=== PATIENT | male | born 1985 | race Hispanic/Latino ===

== ENCOUNTER 2021-03-13 15:14 | Inpatient (IN) | payer BC ==
[~2021-03-13 15:14] MED LIST: Magnevist 469MG/ML 20 ML VIAL ONE
[2021-03-13 16:03] LABS: #Basophils 0.1 thou/uL (0.0-0.2); #Eosinphils 0.1 thou/uL (0.0-0.7); #Lymphocytes 1.2 thou/uL (1.20-3.40); #Monocytes 0.4 thou/uL (0.11-0.59); #Neutrophils 3.6 thou/uL (1.40-6.50); %Basophils 1.3 % (0.0-1.0); %Lymphocytes 22.1 % (21.0-51.0); %Monocytes 6.9 % (0.0-10.0); %Neutrophils 68.8 % (42.0-75.0); Mean Corpuscular HGB CONC 36.3 g/dL (32.0-36.0); Mean Corpuscular Hemoglobin 33.3 pg (27.0-31.0); Mean Corpuscular Volume 91.9 fL (78.0-98.0); Mean Platelet Volume 7.9 fL (7.4-10.4); Platelet Count 235 thou/uL (130-400); RBC Distribution Width 12.2 % (11.5-14.5); White Blood Cell (WBC) Count 5.2 thou/uL (4.8-10.8)
[2021-03-13 16:19] LABS: ALT (SGPT) 40 U/L (8-55); AST (SGOT) 17 U/L (5-34); Albumin 4.1 g/dL (3.5-5.0); Alkaline Phosphatase 96 U/L (40-110); Anion Gap 16 mmol/L (10-20); BUN (Urea Nitrogen) 12 mg/dL (8.9-20.6); Bilirubin, Total 0.6 mg/dL (0.2-1.2); Calc. Creatinine Clearance 0 mL/min (70-130); Calcium 9.2 mg/dL (7.8-10.44); Carbon Dioxide 23 mmol/L (22-29); Chloride 98 mmol/L (98-107); Globulin 2.8 g/dL (2.4-3.5); Potassium 3.7 mmol/L (3.5-5.1); Protein, Total 6.9 g/dL (6.0-8.3); Sodium 133 mmol/L (136-145)
[2021-03-13 16:21] LABS: Troponin I 0.017 ng/mL (< 0.028)
[2021-03-13 16:22] LABS: Glucose 676 mg/dL (70-105)
[2021-03-13] MEDS ORDERED: niCARdipine 20MG In NaCl 20 MG/200 ML BAG ONE (19:38)
[2021-03-13 20:15] LABS: INR-International Normal Ratio 1.1; Prothrombin Time 14.3 sec (12.0-14.7)
[2021-03-13 20:16] LABS: PTT 25.8 sec (22.9-36.1)
[2021-03-13] MEDS ORDERED: Labetalol HCl 100 MG/20 ML VIAL ONE (21:02)
[2021-03-13] MEDS ORDERED: Dextrose 5% in Water 1,000 ML IV PRN (21:52)
[2021-03-13] MEDS ORDERED: HumaLOG 300 UNITS/3 ML VIAL SC PRN (21:52)
[2021-03-13] MEDS ORDERED: Dextrose 50% Abboject 50 ML SYRINGE SLOW IVP PRN (21:52)
[2021-03-13] MEDS ORDERED: Acetaminophen 650 MG Suppository PR PRN (22:00)
[2021-03-13] MEDS ORDERED: Acetaminophen 325 MG TAB PO PRN (22:00)
[2021-03-13] MEDS ORDERED: Ondansetron ODT 4 MG TAB PO PRN (22:00)
[2021-03-14 00:05] VITALS: BMI 36.3
[2021-03-14] MEDS: HYDROcodone/Acetaminophen 5/325 mg Tablet PO PRN ×4 (00:25→20:42)
[2021-03-14] MEDS: niCARdipine 50 MG in Sodium Chloride 0.9% 250 ML 230 ML IV SCH ×3 (00:35→19:34)
[2021-03-14 03:43] LABS: #Lymphocytes 1.5 thou/uL (1.20-3.40); #Monocytes 0.5 thou/uL (0.11-0.59); #Neutrophils 7.3 thou/uL (1.40-6.50); %Eosinophils 0.4 % (0.0-10.0); %Lymphocytes 16.3 % (21.0-51.0); %Neutrophils 78.2 % (42.0-75.0); Hemoglobin 15.7 g/dL (14.0-18.0); Mean Corpuscular HGB CONC 34.7 g/dL (32.0-36.0); Mean Corpuscular Hemoglobin 31.5 pg (27.0-31.0); Mean Corpuscular Volume 90.9 fL (78.0-98.0); Mean Platelet Volume 7.5 fL (7.4-10.4); Platelet Count 266 thou/uL (130-400); RBC Distribution Width 12.3 % (11.5-14.5); Red Blood Cell (RBC) Count 4.98 mill/uL (4.70-6.10); White Blood Cell (WBC) Count 9.3 thou/uL (4.8-10.8)
[2021-03-14 03:47] LABS: Hemoglobin A1c 12.8 % (4.0-6.0)
[2021-03-14 03:57] LABS: Anion Gap 14 mmol/L (10-20); BUN (Urea Nitrogen) 10 mg/dL (8.9-20.6); Calc. Creatinine Clearance 143 mL/min (70-130); Calcium 9.1 mg/dL (7.8-10.44); Carbon Dioxide 22 mmol/L (22-29); Chloride 101 mmol/L (98-107); Glucose 319 mg/dL (70-105); Potassium 3.4 mmol/L (3.5-5.1); Sodium 134 mmol/L (136-145)
[2021-03-14] MEDS ORDERED: HumaLOG 300 UNITS/3 ML VIAL SC PRN (11:45)
[2021-03-14] MEDS ORDERED: Milk Of Magnesia 30 ML UDCUP PO PRN (13:15)
[2021-03-14] MEDS ORDERED: Bisacodyl 10 MG SUPP PR PRN (13:15)
[2021-03-14] MEDS ORDERED: HUMULIN R 100 UNITS in Sodium Chloride 0.9% 100 ML IVPB SCH (13:15)
[2021-03-14] MEDS: Sodium Chloride 0.9% 1,000 ML IV SCH (16:52)
[2021-03-14] MEDS: Ondansetron PF 4 MG/2 ML Vial IVP PRN ×2 (17:05→17:08)
[2021-03-14] MEDS: Famotidine 20 MG TAB PO SCH (20:43)
[2021-03-14] MEDS: levETIRAcetam 500 MG TAB PO SCH (20:43)
[2021-03-15] MEDS: niCARdipine 50 MG in Sodium Chloride 0.9% 250 ML 230 ML IV SCH ×2 (01:43→20:13)
[2021-03-15] MEDS: Sodium Chloride 0.9% 1,000 ML IV SCH ×3 (01:43→20:14)
[2021-03-15 03:24] LABS: #Lymphocytes 1.9 thou/uL (1.20-3.40); #Monocytes 0.5 thou/uL (0.11-0.59); #Neutrophils 5.7 thou/uL (1.40-6.50); %Basophils 0.1 % (0.0-1.0); %Eosinophils 0.5 % (0.0-10.0); %Lymphocytes 22.9 % (21.0-51.0); %Monocytes 6.5 % (0.0-10.0); Hemoglobin 16.3 g/dL (14.0-18.0); Mean Corpuscular HGB CONC 35.6 g/dL (32.0-36.0); Mean Corpuscular Hemoglobin 32.7 pg (27.0-31.0); Mean Corpuscular Volume 91.8 fL (78.0-98.0); Mean Platelet Volume 7.2 fL (7.4-10.4); Platelet Count 258 thou/uL (130-400); RBC Distribution Width 12.2 % (11.5-14.5); Red Blood Cell (RBC) Count 4.99 mill/uL (4.70-6.10); White Blood Cell (WBC) Count 8.1 thou/uL (4.8-10.8)
[2021-03-15 03:51] LABS: Anion Gap 11 mmol/L (10-20); BUN (Urea Nitrogen) 11 mg/dL (8.9-20.6); Calc. Creatinine Clearance 174 mL/min (70-130); Calcium 8.8 mg/dL (7.8-10.44); Carbon Dioxide 25 mmol/L (22-29); Chloride 104 mmol/L (98-107); Glucose 147 mg/dL (70-105); Sodium 137 mmol/L (136-145)
[2021-03-15 03:55] LABS: Potassium 2.9 mmol/L (3.5-5.1)
[2021-03-15] MEDS ORDERED: Potassium Chloride 10 MEQ in Premix Bag 1 BAG IVPB SCH (04:15)
[2021-03-15] MEDS ORDERED: Electrolyte Replacement Protocol 1 EACH FS PRN (04:15)
[2021-03-15] MEDS: HYDROcodone/Acetaminophen 5/325 mg Tablet PO PRN ×3 (04:31→14:24)
[2021-03-15] MEDS: Potassium Chloride 40 MEQ in Premix Bag 1 BAG IVPB SCH ×2 (04:38→05:51)
[2021-03-15] MEDS: Potassium Chloride 20 MEQ in Premix Bag 1 BAG IVPB SCH ×4 (04:48→11:03)
[2021-03-15] MEDS: Famotidine 20 MG TAB PO SCH ×2 (08:56→20:12)
[2021-03-15] MEDS: levETIRAcetam 500 MG TAB PO SCH ×2 (08:56→20:12)
[2021-03-15] MEDS ORDERED: Amlodipine 10 MG TAB PO SCH (10:45)
[2021-03-15] MEDS: Ondansetron PF 4 MG/2 ML Vial IVP PRN ×2 (12:58→18:09)
[2021-03-15] MEDS ORDERED: Dextrose 5% in Water 1,000 ML IV PRN (13:45)
[2021-03-15] MEDS ORDERED: Lantus 1000 UNITS/10 ML VIAL SC SCH (13:45)
[2021-03-15] MEDS ORDERED: Lisinopril 5 MG TAB PO SCH (13:45)
[2021-03-15] MEDS ORDERED: Dextrose 50% Abboject 50 ML SYRINGE IVP PRN (13:45)
[2021-03-15] MEDS ORDERED: Ketorolac Tromethamine 30 MG/ML VIAL IVP SCH (14:45)
[2021-03-15] MEDS: Insulin Regular 300 UNITS/3 ML VIAL SC PRN ×2 (16:29→20:10)
[2021-03-15] MEDS: Fioricet 325/50/40 mg Tablet PO PRN (18:26)
[2021-03-15] MEDS: Lisinopril 5 MG TAB PO SCH (20:12)
[2021-03-15] MEDS: metFORMIN 500 MG TAB PO SCH (20:12)
[2021-03-16] MEDS: HYDROcodone/Acetaminophen 5/325 mg Tablet PO PRN ×4 (03:07→20:23)
[2021-03-16] MEDS: Sodium Chloride 0.9% 1,000 ML IV SCH ×2 (08:07→17:13)
[2021-03-16] MEDS: Amlodipine 10 MG TAB PO SCH (08:07)
[2021-03-16] MEDS: Famotidine 20 MG TAB PO SCH ×2 (08:08→21:00)
[2021-03-16] MEDS: Lisinopril 5 MG TAB PO SCH ×2 (08:08→20:59)
[2021-03-16] MEDS: levETIRAcetam 500 MG TAB PO SCH ×2 (08:08→20:59)
[2021-03-16] MEDS: metFORMIN 500 MG TAB PO SCH ×2 (08:09→20:59)
[2021-03-16] MEDS: Insulin Regular 300 UNITS/3 ML VIAL SC PRN ×2 (08:09→11:55)
[2021-03-16] MEDS: Lantus 1000 UNITS/10 ML VIAL SC SCH (08:10)
[2021-03-16] MEDS: Ondansetron PF 4 MG/2 ML Vial IVP PRN (08:24)
[2021-03-16] MEDS: hydrALAZINE 25 MG TAB PO SCH ×2 (14:14→21:00)
[2021-03-16] MEDS: Ondansetron ODT 8 MG TAB SL PRN (16:00)
[2021-03-16] MEDS: niCARdipine 50 MG in Sodium Chloride 0.9% 250 ML 230 ML IV SCH (17:14)
[2021-03-16 23:29] LABS: Anion Gap 15 mmol/L (10-20); BUN (Urea Nitrogen) 11 mg/dL (8.9-20.6); Calc. Creatinine Clearance 184 mL/min (70-130); Calcium 8.7 mg/dL (7.8-10.44); Carbon Dioxide 21 mmol/L (22-29); Chloride 100 mmol/L (98-107); Glucose 168 mg/dL (70-105); Magnesium 1.6 mg/dL (1.6-2.6); Potassium 3.5 mmol/L (3.5-5.1); Sodium 132 mmol/L (136-145)
[2021-03-17] MEDS: niCARdipine 50 MG in Sodium Chloride 0.9% 250 ML 230 ML IV SCH ×3 (00:21→20:46)
[2021-03-17] MEDS ORDERED: Potassium Chloride 40 MEQ in Sodium Chloride 0.9% 250 ML 250 ML IVPB SCH (01:30)
[2021-03-17] MEDS ORDERED: Magnesium 2 GM/50 ML 2 GM in Premix Bag 1 BAG IVPB SCH (01:30)
[2021-03-17] MEDS: HYDROcodone/Acetaminophen 5/325 mg Tablet PO PRN ×4 (02:04→20:51)
[2021-03-17] MEDS: Sodium Chloride 0.9% 1,000 ML IV SCH ×3 (02:06→17:19)
[2021-03-17] MEDS: Insulin Regular 300 UNITS/3 ML VIAL SC PRN ×3 (06:37→15:50)
[2021-03-17] MEDS: Lantus 1000 UNITS/10 ML VIAL SC SCH (08:13)
[2021-03-17] MEDS: levETIRAcetam 500 MG TAB PO SCH ×2 (08:14→20:48)
[2021-03-17] MEDS: Amlodipine 10 MG TAB PO SCH (08:14)
[2021-03-17] MEDS: hydrALAZINE 25 MG TAB PO SCH ×3 (08:15→20:48)
[2021-03-17] MEDS: metFORMIN 500 MG TAB PO SCH ×2 (08:15→20:48)
[2021-03-17] MEDS: Lisinopril 5 MG TAB PO SCH (08:15)
[2021-03-17] MEDS: Famotidine 20 MG TAB PO SCH ×2 (08:15→20:49)
[2021-03-17] MEDS: Docusate 100 MG CAP PO PRN (08:19)
[2021-03-17] MEDS: HYDROcodone/Acetaminophen 7.5/325 mg Tablet PO PRN (09:11)
[2021-03-17] MEDS: Fioricet 325/50/40 mg Tablet PO PRN (09:26)
[2021-03-17] MEDS ORDERED: NIFEdipine XL 60 MG TAB PO SCH (10:45)
[2021-03-17 12:00] LABS: Potassium 3.5 mmol/L (3.5-5.1)
[2021-03-17] MEDS ORDERED: Potassium Chloride 20 MEQ TAB PO SCH (12:30)
[2021-03-17] MEDS: Ondansetron ODT 8 MG TAB SL PRN (17:18)
[2021-03-17] MEDS: Lisinopril 20 MG TAB PO SCH (20:49)
[2021-03-17] MEDS: Metoprolol Tartrate 25 MG TAB PO SCH (20:49)
[2021-03-18] MEDS: HYDROcodone/Acetaminophen 7.5/325 mg Tablet PO PRN ×2 (01:19→08:14)
[2021-03-18] MEDS: Sodium Chloride 0.9% 1,000 ML IV SCH ×3 (04:17→22:26)
[2021-03-18] MEDS: Insulin Regular 300 UNITS/3 ML VIAL SC PRN ×2 (06:02→17:38)
[2021-03-18] MEDS: hydrALAZINE 25 MG TAB PO SCH ×3 (08:15→20:22)
[2021-03-18] MEDS: NIFEdipine XL 60 MG TAB PO SCH (08:16)
[2021-03-18] MEDS: Metoprolol Tartrate 25 MG TAB PO SCH ×2 (08:16→20:23)
[2021-03-18] MEDS: metFORMIN 500 MG TAB PO SCH ×2 (08:16→20:23)
[2021-03-18] MEDS: Lisinopril 20 MG TAB PO SCH ×2 (08:16→20:22)
[2021-03-18] MEDS: levETIRAcetam 500 MG TAB PO SCH ×2 (08:17→20:23)
[2021-03-18] MEDS: Docusate 100 MG CAP PO PRN (08:17)
[2021-03-18] MEDS: Famotidine 20 MG TAB PO SCH ×2 (08:17→20:22)
[2021-03-18] MEDS: Lantus 1000 UNITS/10 ML VIAL SC SCH (09:54)
[2021-03-18] MEDS: Fioricet 325/50/40 mg Tablet PO PRN ×2 (15:05→20:53)
[2021-03-18] MEDS: HYDROcodone/Acetaminophen 5/325 mg Tablet PO PRN (19:19)
[2021-03-19] MEDS: Fioricet 325/50/40 mg Tablet PO PRN ×4 (04:35→22:04)
[2021-03-19] MEDS: hydrALAZINE 25 MG TAB PO SCH ×3 (08:02→21:57)
[2021-03-19] MEDS: HYDROcodone/Acetaminophen 5/325 mg Tablet PO PRN (08:02)
[2021-03-19] MEDS: Lisinopril 20 MG TAB PO SCH ×2 (08:03→21:58)
[2021-03-19] MEDS: Lantus 1000 UNITS/10 ML VIAL SC SCH (08:03)
[2021-03-19] MEDS: levETIRAcetam 500 MG TAB PO SCH ×2 (08:03→21:57)
[2021-03-19] MEDS: metFORMIN 500 MG TAB PO SCH ×2 (08:03→21:58)
[2021-03-19] MEDS: NIFEdipine XL 60 MG TAB PO SCH (08:03)
[2021-03-19] MEDS: Famotidine 20 MG TAB PO SCH ×2 (08:03→21:58)
[2021-03-19] MEDS: Metoprolol Tartrate 25 MG TAB PO SCH ×2 (08:03→21:57)
[2021-03-19] MEDS: Hydrochlorothiazide 25 MG TAB PO SCH (10:21)
[2021-03-19] MEDS ORDERED: Iopamidol 370 76% 100 ML VIAL ONE (11:12)
[2021-03-19] MEDS: HYDROcodone/Acetaminophen 5/325 mg Tablet PO SCH ×2 (13:56→22:06)
[2021-03-19] MEDS: Insulin Regular 300 UNITS/3 ML VIAL SC PRN (17:04)
[2021-03-19] MEDS ORDERED: Morphine 2 MG/ML VIAL SLOW IVP SCH (20:15)
[2021-03-20] MEDS: Fioricet 325/50/40 mg Tablet PO PRN ×2 (02:08→08:45)
[2021-03-20] MEDS: HYDROcodone/Acetaminophen 5/325 mg Tablet PO SCH (05:23)
[2021-03-20 07:08] LABS: Anion Gap 18 mmol/L (10-20); BUN (Urea Nitrogen) 15 mg/dL (8.9-20.6); Calc. Creatinine Clearance 165 mL/min (70-130); Calcium 9.6 mg/dL (7.8-10.44); Carbon Dioxide 19 mmol/L (22-29); Chloride 95 mmol/L (98-107); Glucose 155 mg/dL (70-105); Potassium 3.2 mmol/L (3.5-5.1); Sodium 129 mmol/L (136-145)
[2021-03-20] MEDS ORDERED: Electrolyte Replacement Protocol FS PRN (07:15)
[2021-03-20] MEDS ORDERED: Potassium Chloride 20 MEQ TAB PO SCH (08:00)
[2021-03-20] MEDS ORDERED: Magnesium 2 GM/50 ML 2 GM in Premix Bag 1 BAG IVPB SCH (08:15)
[2021-03-20] MEDS: Famotidine 20 MG TAB PO SCH ×2 (08:35→21:20)
[2021-03-20] MEDS: Metoprolol Tartrate 25 MG TAB PO SCH ×2 (08:40→21:20)
[2021-03-20] MEDS: Hydrochlorothiazide 25 MG TAB PO SCH (08:40)
[2021-03-20] MEDS: NIFEdipine XL 60 MG TAB PO SCH (08:41)
[2021-03-20] MEDS: hydrALAZINE 25 MG TAB PO SCH ×3 (08:41→21:19)
[2021-03-20] MEDS: metFORMIN 500 MG TAB PO SCH ×2 (08:41→21:20)
[2021-03-20] MEDS: Lisinopril 20 MG TAB PO SCH ×2 (08:42→21:20)
[2021-03-20] MEDS: levETIRAcetam 500 MG TAB PO SCH ×2 (08:42→21:20)
[2021-03-20] MEDS: Lantus 1000 UNITS/10 ML VIAL SC SCH (08:44)
[2021-03-20] MEDS: Sodium Chloride 0.9% 1,000 ML IV SCH (08:53)
[2021-03-20] MEDS ORDERED: Morphine 2 MG/ML VIAL SLOW IVP SCH (10:30)
[2021-03-20] MEDS: HYDROcodone/Acetaminophen 5/325 mg Tablet PO PRN ×2 (15:22→19:48)
[2021-03-20] MEDS: Insulin Regular 300 UNITS/3 ML VIAL SC PRN (16:22)
[2021-03-20] MEDS: HumaLOG 300 UNITS/3 ML VIAL SC PRN (21:44)
[2021-03-21] MEDS: HYDROcodone/Acetaminophen 5/325 mg Tablet PO PRN ×4 (00:07→16:53)
[2021-03-21] MEDS: Insulin Regular 300 UNITS/3 ML VIAL SC PRN ×2 (05:12→16:54)
[2021-03-21] MEDS: Metoprolol Tartrate 25 MG TAB PO SCH ×2 (07:50→20:46)
[2021-03-21] MEDS: NIFEdipine XL 60 MG TAB PO SCH (07:50)
[2021-03-21] MEDS: hydrALAZINE 25 MG TAB PO SCH ×3 (07:50→20:44)
[2021-03-21] MEDS: metFORMIN 500 MG TAB PO SCH ×2 (07:51→20:45)
[2021-03-21] MEDS: levETIRAcetam 500 MG TAB PO SCH ×2 (07:51→20:45)
[2021-03-21] MEDS: Hydrochlorothiazide 25 MG TAB PO SCH (07:51)
[2021-03-21] MEDS: Famotidine 20 MG TAB PO SCH ×2 (07:51→20:43)
[2021-03-21] MEDS: Lisinopril 20 MG TAB PO SCH ×2 (07:51→20:45)
[2021-03-21] MEDS: Lantus 1000 UNITS/10 ML VIAL SC SCH (07:52)
[2021-03-21 08:48] LABS: Calcium 9.2 mg/dL (7.8-10.44); Chloride 95 mmol/L (98-107); Glucose 142 mg/dL (70-105); Potassium 3.1 mmol/L (3.5-5.1); Sodium 126 mmol/L (136-145)
[2021-03-21 08:58] LABS: BUN (Urea Nitrogen) 15 mg/dL (8.9-20.6); Calc. Creatinine Clearance 173 mL/min (70-130); Carbon Dioxide 17 mmol/L (22-29); Magnesium 1.8 mg/dL (1.6-2.6)
[2021-03-21 09:03] LABS: Anion Gap 17 mmol/L (10-20)
[2021-03-21] MEDS ORDERED: Potassium Chloride 20 MEQ TAB PO SCH ×2 (09:15→10:30)
[2021-03-21] MEDS ORDERED: Magnesium 2 GM/50 ML 2 GM in Premix Bag 1 BAG IVPB SCH (09:15)
[2021-03-21] MEDS ORDERED: Morphine 2 MG/ML VIAL SLOW IVP SCH (10:15)
[2021-03-21] MEDS ORDERED: fentaNYL 50 mcg/hour Patch TD SCH (11:00)
[2021-03-21] MEDS ORDERED: Morphine 2 MG/ML VIAL SLOW IVP PRN (14:00)
[2021-03-21] MEDS: HumaLOG 300 UNITS/3 ML VIAL SC PRN (20:47)
[2021-03-22] MEDS: Insulin Regular 300 UNITS/3 ML VIAL SC PRN ×3 (05:26→16:01)
[2021-03-22 07:07] LABS: Anion Gap 18 mmol/L (10-20); BUN (Urea Nitrogen) 22 mg/dL (8.9-20.6); Calc. Creatinine Clearance 129 mL/min (70-130); Calcium 9.5 mg/dL (7.8-10.44); Carbon Dioxide 21 mmol/L (22-29); Chloride 92 mmol/L (98-107); Glucose 189 mg/dL (70-105); Magnesium 2.1 mg/dL (1.6-2.6); Potassium 3.5 mmol/L (3.5-5.1); Sodium 127 mmol/L (136-145)
[2021-03-22] MEDS ORDERED: Potassium Chloride 20 MEQ TAB PO SCH ×2 (07:30→08:00)
[2021-03-22] MEDS: NIFEdipine XL 60 MG TAB PO SCH (08:18)
[2021-03-22] MEDS: Hydrochlorothiazide 25 MG TAB PO SCH (08:18)
[2021-03-22] MEDS: Lisinopril 20 MG TAB PO SCH (08:19)
[2021-03-22] MEDS: metFORMIN 500 MG TAB PO SCH (08:19)
[2021-03-22] MEDS: Metoprolol Tartrate 25 MG TAB PO SCH (08:19)
[2021-03-22] MEDS: Famotidine 20 MG TAB PO SCH (08:19)
[2021-03-22] MEDS: levETIRAcetam 500 MG TAB PO SCH (08:20)
[2021-03-22] MEDS: hydrALAZINE 25 MG TAB PO SCH ×2 (08:20→14:40)
[2021-03-22] MEDS: Lantus 1000 UNITS/10 ML VIAL SC SCH (08:21)
[2021-03-22 16:34] VITALS: BP 128/85; TEMP 98.4
== END 2021-03-22 16:41 | disposition home or self-care (01) | DRG 65 ==
LOC: ERS 15:14 → CCU 21:03 → T4-A 03-18 15:58
PROVIDERS: ADMIT Student in an Organized Health Care Education/Training Program; ATTEND Internal Medicine
DX: I61.5 Nontraumatic intracerebral hemorrhage, intraventricular (principal); I16.1 Hypertensive emergency; N17.9 Acute kidney failure, unspecified; E87.1 Hypo-osmolality and hyponatremia; Z20.822 Contact with and (suspected) exposure to COVID-19; R29.810 Facial weakness; I10 Essential (primary) hypertension; E11.65 Type 2 diabetes mellitus with hyperglycemia; F17.210 Nicotine dependence, cigarettes, uncomplicated; G51.0 Bell's palsy; G43.909 Migraine, unspecified, not intractable, without status migrainosus; Z91.013 Allergy to seafood; Z79.899 Other long term (current) drug therapy; Z83.3 Family history of diabetes mellitus; Z82.49 Family history of ischemic heart disease and other diseases of the circulatory system
CPT/HCPCS: 36415; 36416; 70450; 70470; 70544; 70553; 80048; 80053; 83036; 83735; 84132; 84484; 85025; 85610; 85730; 93005; 93010; 93970; 96365; 96366; 96374; A9579; J1815; J1885; J2270; J2405; J3475; J3480; J3490; J7050; Q0162; Q9967

== ENCOUNTER 2022-03-21 19:30 | Outpatient (CLI) | payer BC | END 2022-03-21 19:31 | disposition home or self-care (01) | LOC: SLEEPLAB 19:30 | PROVIDERS: ATTEND Physician Assistant | DX: G47.33 Obstructive sleep apnea (adult) (pediatric) (principal); R53.83 Other fatigue; R51.9 Headache, unspecified; G47.00 Insomnia, unspecified; R06.83 Snoring; I10 Essential (primary) hypertension; E11.9 Type 2 diabetes mellitus without complications; E66.9 Obesity, unspecified; Z68.39 Body mass index [BMI] 39.0-39.9, adult | CPT/HCPCS: 95811 ==

== ENCOUNTER 2022-05-24 22:36 | Emergency (ER) | payer BC ==
[2022-05-25] MEDS ORDERED: Ketorolac Tromethamine 30 MG/ML VIAL ONE (01:54)
[2022-05-25] MEDS ORDERED: diphenhydrAMINE 50 MG/ML VIAL ONE (01:54)
[2022-05-25] MEDS ORDERED: Metoclopramide HCl 10 MG/2 ML VIAL ONE (01:54)
== END 2022-05-25 01:55 | disposition home or self-care (01) ==
LOC: ERS 22:36
DX: R51.9 Headache, unspecified (principal); F17.200 Nicotine dependence, unspecified, uncomplicated
CPT/HCPCS: 96374; 96375; J1200; J1885; J2765